=== PATIENT | male | born 1990 | race Hispanic/Latino ===

== ENCOUNTER 2018-08-10 10:54 | Emergency (ER) | payer SELFPAY ==
[~2018-08-10] VITALS: Ht 177.8 cm; Wt 118.2 kg
[2018-08-10] MEDS ORDERED: BACTRIM DS1 TAB PO (12:35)
[2018-08-10] MEDS ORDERED: KEFLEX500 M1 PO (12:35)
[2018-08-10 13:00] VITALS: BP 138/70
== END 2018-08-10 13:00 | disposition home or self-care (01) | DRG 863 ==
LOC: ED 10:54
DX: T81.41XA Infection following a procedure, superficial incisional surgical site, initial encounter (principal); B95.61 Methicillin susceptible Staphylococcus aureus infection as the cause of diseases classified elsewhere; Y83.8 Other surgical procedures as the cause of abnormal reaction of the patient, or of later complication, without mention of misadventure at the time of the procedure